=== PATIENT | female | born 1955 | race Two or more races ===

== ENCOUNTER → 2018-04-15 | Outpatient (CLI) | payer OTHER | LOC: M WUC 14:44 | DX: M25.571 Pain in right ankle and joints of right foot (principal); M17.12 Unilateral primary osteoarthritis, left knee; S00.83XA Contusion of other part of head, initial encounter; M77.31 Calcaneal spur, right foot; X58.XXXA Exposure to other specified factors, initial encounter; Y92.9 Unspecified place or not applicable | CPT/HCPCS: 70150 ==

== ENCOUNTER → 2018-12-22 | Outpatient (REF) | payer BC | LOC: M LAB LCGH 11:09 | DX: N90.4 Leukoplakia of vulva (principal) ==

== ENCOUNTER → 2020-09-18 | Outpatient (CLI) | payer BC ==
--- NOTE | 2020-09-19 09:46 | ECHO ---
DATE OF PROCEDURE: 09/18/2020 Age: 65 Gender: Female Height: 154 cm Weight: 76 kg REFERRING PHYSICIAN: DAVID Urias INDICATION: Murmur. MEASUREMENTS: IVS 0.9 cm LV 5.0 cm LVPW 1.0 cm LA 4.1 cm Aorta 2.9 cm RV 3.7 cm IVC 1.7 cm DOPPLER MEASUREMENT Mitral E wave velocity 86 Mitral A wave 103 E prime septal 5.1 E prime lateral 5.9 FINDINGS: This study is of acceptable technical quality. Underlying sinus rhythm. Left ventricle has normal size and systolic function with estimated LVEF around 60%. I do not appreciate any segmental wall motion abnormalities. The right ventricle also appears to be of normal size and systolic function. The left atrium is at least mildly enlarged. The right atrium appears normal. The aortic valve is tricuspid. It is sclerotic, but mobility of cusps is preserved. Mitral, tricuspid, and pulmonic valve appears normal. No pericardial effusion is noted. Inferior vena cava has normal size and appropriately collapses with inspiration. Aortic root and aortic arch appear normal. Abdominal aorta was not well seen. Doppler interrogation of the aortic valve reveals no significant stenosis and mild insufficiency. There is also trace mitral insufficiency. Tricuspid valve is functionally competent. Trace pulmonic insufficiency is noted. Mitral inflow pattern and tissue Doppler imaging of the mitral annulus revealed grade 1 diastolic dysfunction. CONCLUSIONS: 1. Study is of acceptable technical quality, underlying sinus rhythm. 2. Normal LV size with preserved LV systolic function and grade 1 diastolic dysfunction. 3. Aortic sclerosis with no significant stenosis and mild insufficiency. 4. Trace mitral insufficiency. 5. Trace pulmonic insufficiency. 6. Likely normal central venous pressure. Unable to estimate pulmonary artery pressure. MTDD
== END ==
LOC: M CARPUL 10:39
PROVIDERS: ATTEND Physician Assistant
DX: R01.1 Cardiac murmur, unspecified (principal); I08.0 Rheumatic disorders of both mitral and aortic valves

== ENCOUNTER → 2021-07-31 | Outpatient (CLI) | payer BC | LOC: M WHC 07:41 | PROVIDERS: ATTEND Physician Assistant | DX: Z12.31 Encounter for screening mammogram for malignant neoplasm of breast (principal); Z80.0 Family history of malignant neoplasm of digestive organs; Z80.3 Family history of malignant neoplasm of breast; Z78.0 Asymptomatic menopausal state ==

== ENCOUNTER → 2021-12-17 | Outpatient (REF) | payer MEDICARE, BC | LOC: M LAB REF 17:07 | PROVIDERS: ATTEND Physician Assistant Medical | DX: R50.9 Fever, unspecified (principal); R11.10 Vomiting, unspecified ==

== ENCOUNTER → 2022-05-09 | Outpatient (CLI) | payer BC, MEDICARE | LOC: M WHC 09:44 | PROVIDERS: ATTEND Family Medicine | DX: K80.20 Calculus of gallbladder without cholecystitis without obstruction (principal); N20.0 Calculus of kidney; R31.9 Hematuria, unspecified ==

== ENCOUNTER → 2022-09-27 | Outpatient (CLI) | payer MEDICARE ==
[2022-09-27 13:13] LABS: BASO # 0.1 10^3/uL (0.0-0.2); BASO % 0.7 % (0.0-1.0); EOS # 0.2 10^3/uL (0.0-0.5); EOS % 2.2 % (0.0-3.0); HEMATOCRIT 41.3 % (36.0-47.0); HEMOGLOBIN 13.6 g/dl (12.0-15.5); LYMPH # 1.8 10^3/uL (1.5-5.0); LYMPH % 21.9 % (24.0-44.0); MEAN CORPUSCULAR HEMOGLOBIN 31.6 pg (27.0-33.0); MEAN CORPUSCULAR HGB CONC 32.9 g/dl (32.0-36.5); MEAN CORPUSCULAR VOLUME 95.8 fl (80.0-96.0); MONO # 0.7 10^3/uL (0.0-0.8); MONO % 8.2 % (2.0-8.0); NEUTROPHILS # 5.5 10^3/uL (1.5-8.5); NEUTROPHILS % 66.3 % (36.0-66.0); PLATELET COUNT, AUTOMATED 272 10^3/uL (150-450); RED BLOOD COUNT 4.31 10^6/uL (4.00-5.40); WHITE BLOOD COUNT 8.3 10^3/uL (4.0-10.0)
[2022-09-27 13:45] LABS: ALBUMIN 3.4 G/DL (3.2-5.2); ALKALINE PHOSPHATASE 56 U/L (46-116); ALT/SGPT 26 U/L (7.0-40); AST/SGOT 20 U/L (<34); BILIRUBIN,TOTAL 0.6 MG/DL (0.3-1.2); BLOOD UREA NITROGEN 12 MG/DL (9-23); CALCIUM LEVEL 8.9 MG/DL (8.3-10.6); CARBON DIOXIDE LEVEL 34 MMOL/L (20-31); CHLORIDE LEVEL 99 MMOL/L (98-107); CHOLESTEROL LEVEL 133 MG/DL (<200); CHOLESTEROL RISK RATIO 3.19 (<5); CREATININE FOR GFR 0.53 MG/DL (0.55-1.30); GLOMERULAR FILTRATION RATE > 60.0 (>45); GLUCOSE, FASTING 77 MG/DL (74-106); HDL CHOLESTEROL 41.6 MG/DL (>40); LDL CHOLESTEROL 75.8 MG/DL (<100); NON-HDL-C 91 MG/DL; POTASSIUM SERUM 4.1 MMOL/L (3.5-5.1); SODIUM LEVEL 137 MMOL/L (136-145); TOTAL PROTEIN 6.5 G/DL (5.7-8.2); TRIGLYCERIDES LEVEL 78 MG/DL (<150)
[2022-09-27 13:47] LABS: THYROID STIMULATING HORMONE 1.471 uIU/ML (0.55-4.78)
== END ==
LOC: M WUC 09:30
PROVIDERS: ATTEND Physician Assistant
DX: I10 Essential (primary) hypertension (principal); E78.5 Hyperlipidemia, unspecified; E03.9 Hypothyroidism, unspecified

== ENCOUNTER → 2023-09-19 | Outpatient (CLI) | payer MEDICAID, MEDICARE | LOC: M WHC 08:37 | PROVIDERS: ATTEND Obstetrics & Gynecology | DX: Z12.31 Encounter for screening mammogram for malignant neoplasm of breast (principal) ==

== ENCOUNTER → 2023-10-29 | Outpatient (CLI) | payer MEDICARE | LOC: M WHC 07:03 | PROVIDERS: ATTEND Physician Assistant | DX: R10.11 Right upper quadrant pain (principal); K80.20 Calculus of gallbladder without cholecystitis without obstruction; K76.89 Other specified diseases of liver ==

== ENCOUNTER 2023-11-16 06:47 | Inpatient (IN) | payer MEDICARE ==
[2023-11-16] VITALS (9 sets, daily range): BP systolic 101–121; BP diastolic 47–64; TEMP 97.5–98.6; O2SAT 93–98
[~2023-11-16] VITALS: Ht 154.9 cm; Wt 71.8 kg
[2023-11-16] MEDS ORDERED: ATEN50TA2 PO (06:54)
[2023-11-16] MEDS: NS 1,000 ML IV ONE (07:40)
[2023-11-16] MEDS: ONDANSETRON 4MG 2ML VIAL IV ONE (08:14)
[2023-11-16] MEDS: KETOROLAC 30 MG/ML 1ML VIAL IV ONE ×2 (08:14→11:28)
[2023-11-16 08:32] LABS: BASO % 0.2 % (0.0-1.0); EOS % 0.1 % (0.0-3.0); HEMATOCRIT 42.2 % (36.0-47.0); HEMOGLOBIN 14.3 g/dl (12.0-15.5); LYMPH # 0.7 10^3/uL (1.5-5.0); LYMPH % 4.2 % (24.0-44.0); MEAN CORPUSCULAR HEMOGLOBIN 32.4 pg (27.0-33.0); MEAN CORPUSCULAR HGB CONC 33.9 g/dl (32.0-36.5); MEAN CORPUSCULAR VOLUME 95.7 fl (80.0-96.0); MONO # 0.9 10^3/uL (0.0-0.8); MONO % 5.7 % (2.0-8.0); NEUTROPHILS # 13.8 10^3/uL (1.5-8.5); PLATELET COUNT, AUTOMATED 228 10^3/uL (150-450); RED BLOOD COUNT 4.41 10^6/uL (4.00-5.40); WHITE BLOOD COUNT 15.5 10^3/uL (4.0-10.0)
[2023-11-16 09:03] LABS: ALBUMIN 3.8 G/DL (3.2-5.2); BILIRUBIN,DIRECT 0.2 MG/DL (<0.4); BILIRUBIN,TOTAL 0.6 MG/DL (0.3-1.2); TOTAL PROTEIN 6.7 G/DL (5.7-8.2)
[2023-11-16] MEDS ORDERED: ISOVUE-370 76% 100ML VIAL As Ordered ONE (10:35)
[2023-11-16] MEDS: PIPERACILLIN/TAZOBACTAM SOD 3.375 GM in D5W MINI-BAG PLUS 50 ML IV ONE (11:12)
[2023-11-16] MEDS ORDERED: fentaNYL 100 MCG/2 ML INJECTION As Ordered ONE (11:49)
[2023-11-16] MEDS ORDERED: MIDAZOLAM INJ 2MG/2ML VIAL As Ordered ONE (11:49)
[2023-11-16] MEDS ORDERED: propofoL 200 MG/20 ML VIAL As Ordered ONE (11:49)
[2023-11-16] MEDS ORDERED: ROCURONIUM BROMIDE 50MG/5ML VIAL As Ordered ONE (11:50)
[2023-11-16] MEDS ORDERED: LIDOCAINE 2% 100MG/5ML SDV (FOR ANES.) As Ordered ONE (11:50)
[2023-11-16] MEDS ORDERED: MED REC IN PROGRESS XX SCH (11:50)
[2023-11-16] MEDS ORDERED: GLYCOPYRROLATE INJ 0.2 MG/ML 2 ML VIAL As Ordered ONE (11:50)
[2023-11-16] MEDS ORDERED: ONDANSETRON 4MG 2ML VIAL As Ordered ONE (11:51)
[2023-11-16] MEDS ORDERED: METOCLOPRAMIDE INJ 10MG/2ML VIAL As Ordered ONE (11:51)
[2023-11-16] MEDS ORDERED: KETOROLAC 60MG 2ML VIAL As Ordered ONE (11:55)
[2023-11-16] MEDS ORDERED: ACETAMINOPHEN 1000MG 100ML IV BAG As Ordered ONE (11:57)
[2023-11-16] MEDS ORDERED: LEVO50TA5 PO (12:15)
[2023-11-16] MEDS ORDERED: OMEG350C PO (12:15)
[2023-11-16] MEDS ORDERED: CALC-190 PO (12:15)
[2023-11-16] MEDS ORDERED: POTA8CAP10 PO (12:15)
[2023-11-16] MEDS ORDERED: PRAV80TA2 PO (12:15)
[2023-11-16] MEDS ORDERED: B-COTAB10 PO (12:15)
[2023-11-16] MEDS ORDERED: CLOB0.0548 TOP (12:15)
[2023-11-16] MEDS ORDERED: LOTR52CA PO (12:15)
[2023-11-16] MEDS ORDERED: SPIR-10 PO (12:15)
[2023-11-16] MEDS ORDERED: PANT40TA29 PO (12:15)
[2023-11-16] MEDS ORDERED: FLUO20CA22 PO (12:15)
[2023-11-16] MEDS ORDERED: HOME MED LIST COMPLETE! XX SCH (12:20)
[2023-11-16] MEDS ORDERED: oxyCODONE 5MG TAB PO PRN (12:45)
[2023-11-16] MEDS ORDERED: HYDROMORPHONE HCL 0.5 MG/ 0.5 ML SYRINGE IV PRN (12:45)
[2023-11-16] MEDS ORDERED: ONDANSETRON 4MG 2ML VIAL IV PRN (12:45)
[2023-11-16] MEDS ORDERED: fentaNYL 100 MCG/2 ML INJECTION IV PRN (12:45)
[2023-11-16] MEDS ORDERED: MEPERIDINE 25 MG/ML 1ML VIAL IV PRN (12:45)
[2023-11-16] MEDS ORDERED: LABETALOL 100MG/20ML VIAL As Ordered ONE (13:08)
[2023-11-16] MEDS ORDERED: SUGAMMADEX SODIUM 500 MG/5 ML VIAL (BRIDION) As Ordered ONE (13:25)
[2023-11-16] MEDS ORDERED: MORPHINE 2 MG/ML 1ML VIAL IV PRN (13:50)
[2023-11-16] MEDS: PIPERACILLIN/TAZOBACTAM SOD 4.5 GM in D5W MINI-BAG PLUS 50 ML IV SCH (15:34)
[2023-11-16] MEDS: LEVOTHYROXINE 50MCG TABLET (0.05MG) PO SCH (15:34)
[2023-11-16] MEDS: FLUoxetine 20MG CAP PO SCH (17:33)
[2023-11-16] MEDS: PANTOPRAZOLE 40MG TAB (PROTONIX) PO SCH (17:33)
[2023-11-16] MEDS: NORCO, ANEXSIA 5/325MG TABLET (HYDROcodone/ACETAMINOPHEN) PO PRN (19:53)
[2023-11-16] MEDS: PRAVASTATIN 20 MG TAB PO SCH (20:35)
[2023-11-16] MEDS: atenoloL 25 MG TAB PO SCH (20:36)
[2023-11-16] MEDS: LR 1,000 ML IV SCH (21:47)
[2023-11-16 23:18] LABS: BLOOD UREA NITROGEN 16 MG/DL (9-23); CALCIUM LEVEL 8.3 MG/DL (8.3-10.6); CARBON DIOXIDE LEVEL 25 MMOL/L (20-31); CHLORIDE LEVEL 108 MMOL/L (98-107); CREATININE FOR GFR 0.62 MG/DL (0.55-1.30); GLOMERULAR FILTRATION RATE > 60.0 (>45); GLUCOSE, FASTING 148 MG/DL (74-106); MAGNESIUM LEVEL 1.7 MG/DL (1.8-2.4); POTASSIUM SERUM 4.2 MMOL/L (3.5-5.1); SODIUM LEVEL 139 MMOL/L (136-145)
[2023-11-16] MEDS: MAG SULF 1GM/100ML (MAG RUN) 1 GM in IV 1 EA IV SCH (23:52)
[2023-11-17 06:38] VITALS: BP 130/64; TEMP 97; O2SAT 100
[2023-11-17 07:15] LABS: HEMATOCRIT 34.8 % (36.0-47.0); MEAN CORPUSCULAR HEMOGLOBIN 33.2 pg (27.0-33.0); MEAN CORPUSCULAR HGB CONC 34.2 g/dl (32.0-36.5); MEAN CORPUSCULAR VOLUME 97.2 fl (80.0-96.0); PLATELET COUNT, AUTOMATED 198 10^3/uL (150-450); RED BLOOD COUNT 3.58 10^6/uL (4.00-5.40); WHITE BLOOD COUNT 13.1 10^3/uL (4.0-10.0)
[2023-11-17 07:17] LABS: HEMOGLOBIN 11.9 g/dl (12.0-15.5)
[2023-11-17 07:47] LABS: BLOOD UREA NITROGEN 13 MG/DL (9-23); CALCIUM LEVEL 8.2 MG/DL (8.3-10.6); CARBON DIOXIDE LEVEL 27 MMOL/L (20-31); CHLORIDE LEVEL 107 MMOL/L (98-107); CREATININE FOR GFR 0.59 MG/DL (0.55-1.30); GLOMERULAR FILTRATION RATE > 60.0 (>45); GLUCOSE, FASTING 120 MG/DL (74-106); SODIUM LEVEL 139 MMOL/L (136-145)
[2023-11-17 09:59] VITALS: BP 127/62; TEMP 98.4; O2SAT 95
[2023-11-17] MEDS ORDERED: HYDR-3715 PO (13:28)
[2023-11-17 14:00] VITALS: BP 127/62; TEMP 98.2; O2SAT 92
== END 2023-11-17 14:35 | disposition home or self-care (01) | DRG 399 ==
LOC: M ED 06:47 → M ED INP 12:35 → M MS5PR 14:30
PROVIDERS: ADMIT Internal Medicine Nephrology; ATTEND Internal Medicine Nephrology
PROC: 8E0W4CZ Robotic Assisted Procedure of Trunk Region, Percutaneous Endoscopic Approach (ICD-10-PCS; 2023-11-16)
PROC: 0DTJ4ZZ Resection of Appendix, Percutaneous Endoscopic Approach (ICD-10-PCS; principal; 2023-11-16 11:34)
DX: K35.80 Unspecified acute appendicitis (principal); E03.9 Hypothyroidism, unspecified; F32.A Depression, unspecified; I10 Essential (primary) hypertension; E78.5 Hyperlipidemia, unspecified; K57.90 Diverticulosis of intestine, part unspecified, without perforation or abscess without bleeding; K80.20 Calculus of gallbladder without cholecystitis without obstruction; R01.1 Cardiac murmur, unspecified; Z79.899 Other long term (current) drug therapy; Z88.2 Allergy status to sulfonamides; E83.42 Hypomagnesemia

== ENCOUNTER 2024-01-15 14:14 | Day surgery (SDC) | payer MEDICARE ==
[~2024-01-15] VITALS: Ht 152.4 cm; Wt 73.5 kg
[~2024-01-15 14:14] MED LIST: ATEN50TA2 PO; B-COTAB10 PO; CALC-190 PO; CLOB0.0548 TOP; FLUO20CA22 PO; HYDR-3715 PO; LEVO50TA5 PO; LOTR52CA PO; OMEG350C PO; PANT40TA29 PO; POTA8CAP10 PO; PRAV80TA2 PO; SPIR-10 PO
[2024-01-15] MEDS ORDERED: MIDAZOLAM INJ 2MG/2ML VIAL As Ordered ONE (14:36)
[2024-01-15] MEDS ORDERED: ONDANSETRON 4MG 2ML VIAL As Ordered ONE (14:36)
[2024-01-15] MEDS ORDERED: fentaNYL 100 MCG/2 ML INJECTION As Ordered ONE (14:36)
[2024-01-15] MEDS ORDERED: LIDOCAINE 2% 100MG/5ML SDV (FOR ANES.) As Ordered ONE (14:36)
[2024-01-15] MEDS ORDERED: propofoL 200 MG/20 ML VIAL As Ordered ONE (14:36)
[2024-01-15] MEDS ORDERED: ROCURONIUM BROMIDE 50MG/5ML VIAL As Ordered ONE (14:36)
[2024-01-15] MEDS ORDERED: KETOROLAC 60MG 2ML VIAL As Ordered ONE (14:37)
[2024-01-15] MEDS ORDERED: SUGAMMADEX SODIUM 500 MG/5 ML VIAL (BRIDION) As Ordered ONE (14:37)
[2024-01-15] MEDS ORDERED: LR 1,000 ML IV SCH ×2 (14:45→16:40)
[2024-01-15] MEDS ORDERED: INDOCYANINE GREEN 25MG VIAL (IC-GREEN) As Ordered ONE (15:24)
[2024-01-15] MEDS: INDOCYANINE GREEN 25MG VIAL (IC-GREEN) IV ONE (15:30)
[2024-01-15] MEDS: ceFAZolin SOD 2 GM in IV 1 EA IV ONE (15:32)
[2024-01-15] MEDS: HEPARIN SOD (PORCINE) 5000UNITS/ML 1ML VIAL/SYRINGE SQ ONE (15:44)
[2024-01-15] MEDS ORDERED: ACETAMINOPHEN 1000MG 100ML IV BAG As Ordered ONE (15:49)
[2024-01-15] MEDS ORDERED: dexmedeTOMIDine (4MCG/ML)200MCG/50ML BTL (PRECEDEX) As Ordered ONE (16:10)
[2024-01-15] MEDS: fentaNYL 100 MCG/2 ML INJECTION IV PRN (16:53)
[2024-01-15] MEDS: HYDROMORPHONE HCL 0.5 MG/ 0.5 ML SYRINGE IV PRN (17:16)
[2024-01-15] MEDS: oxyCODONE 5MG TAB PO PRN (17:16)
[2024-01-15] MEDS: ONDANSETRON 4MG 2ML VIAL IV PRN (18:01)
[2024-01-15] MEDS: METOCLOPRAMIDE INJ 10MG/2ML VIAL IV PRN (18:50)
[2024-01-15 20:05] VITALS: BP 164/74; TEMP 97.2; O2SAT 95
== END 2024-01-15 20:07 | disposition home or self-care (01) ==
LOC: M SDC 14:14
PROVIDERS: ATTEND Surgery
DX: K80.20 Calculus of gallbladder without cholecystitis without obstruction (principal); I10 Essential (primary) hypertension; E03.9 Hypothyroidism, unspecified; K57.92 Diverticulitis of intestine, part unspecified, without perforation or abscess without bleeding; K21.9 Gastro-esophageal reflux disease without esophagitis; F41.9 Anxiety disorder, unspecified; Z79.899 Other long term (current) drug therapy; Z88.2 Allergy status to sulfonamides
CPT/HCPCS: 47562; 88304; J0131; J0665; J0690; J1100; J1170; J1885; J2250; J2405; J2765; J3010; Q9968; S2900

== ENCOUNTER → 2024-06-26 | Outpatient (CLI) | payer MEDICARE ==
[~2024-06-26] MED LIST changes: +FLUO-365 PO; -FLUO20CA22 PO
[2024-06-26 10:46] LABS: HEMATOCRIT 39.5 % (36.0-47.0); HEMOGLOBIN 13.1 g/dl (12.0-15.5); MEAN CORPUSCULAR HEMOGLOBIN 32.6 pg (27.0-33.0); MEAN CORPUSCULAR HGB CONC 33.2 g/dl (32.0-36.5); MEAN CORPUSCULAR VOLUME 98.3 fl (80.0-96.0); PLATELET COUNT, AUTOMATED 239 10^3/uL (150-450); RED BLOOD COUNT 4.02 10^6/uL (4.00-5.40)
[2024-06-26 11:16] LABS: ALBUMIN 3.4 G/DL (3.2-5.2); ALKALINE PHOSPHATASE 76 U/L (35-104); ALT/SGPT 17 U/L (7.0-40); AST/SGOT 11 U/L (<34); BILIRUBIN,TOTAL 0.4 MG/DL (0.3-1.2); BLOOD UREA NITROGEN 18 MG/DL (9-23); CALCIUM LEVEL 9.5 MG/DL (8.3-10.6); CARBON DIOXIDE LEVEL 28 MMOL/L (20-31); CHLORIDE LEVEL 110 MMOL/L (98-107); CHOLESTEROL LEVEL 159 MG/DL (<200); CHOLESTEROL RISK RATIO 4.69 (<5); CREATININE FOR GFR 0.74 MG/DL (0.55-1.30); GLOMERULAR FILTRATION RATE > 60.0 (>45); GLUCOSE, FASTING 82 MG/DL (74-106); HDL CHOLESTEROL 33.9 MG/DL (>40); LDL CHOLESTEROL 100.1 MG/DL (<100); NON-HDL-C 125.1 MG/DL; POTASSIUM SERUM 4.4 MMOL/L (3.5-5.1); SODIUM LEVEL 142 MMOL/L (136-145); THYROID STIMULATING HORMONE 1.965 uIU/ML (0.55-4.78); TOTAL PROTEIN 6.5 G/DL (5.7-8.2); TRIGLYCERIDES LEVEL 125 MG/DL (<150)
[2024-06-28 06:55] LABS: WHITE BLOOD COUNT 5.8 10^3/uL (4.0-10.0)
== END ==
LOC: M LAB 08:46
PROVIDERS: ATTEND Physician Assistant
DX: I10 Essential (primary) hypertension (principal); E78.5 Hyperlipidemia, unspecified; E03.9 Hypothyroidism, unspecified

== ENCOUNTER → 2024-08-10 | Outpatient (REF) | payer MEDICARE ==
[2024-08-10 19:13] LABS: APPEARANCE, URINE CLEAR (CLEAR); BACTERIA, URINE AUTO NEGATIVE (NEGATIVE); BILIRUBIN, URINE AUTO NEGATIVE (NEGATIVE); BLOOD, URINE BLOOD 1+ (NEGATIVE); COLOR, URINE YELLOW (YELLOW); GLUCOSE, URINE (UA) AUTO NEGATIVE (NEGATIVE); KETONE, URINE AUTO NEGATIVE (NEGATIVE); LEUKOCYTE ESTERASE, URINE AUTO 3+ (NEGATIVE); NITRITE, URINE AUTO NEGATIVE (NEGATIVE); PROTEIN, URINE AUTO NEGATIVE (NEGATIVE); RBC, URINE AUTO 1 /HPF (0-3); SPECIFIC GRAVITY URINE AUTO 1.012 (1.002-1.035); SQUAMOUS EPITHELIAL CELL UR AU 2 /HPF (0-6); UROBILINOGEN, URINE AUTO 0.2 mg/dL (0.0-2.0); WBC, URINE AUTO 61 /HPF (0-3)
== END ==
LOC: M SMT 17:17
PROVIDERS: ATTEND Nurse Practitioner Family
DX: R32 Unspecified urinary incontinence (principal)

== ENCOUNTER → 2024-09-18 | Outpatient (CLI) | payer MEDICARE ==
[2024-09-18 09:36] LABS: HEMATOCRIT 39.2 % (36.0-47.0); HEMOGLOBIN 12.9 g/dl (12.0-15.5); MEAN CORPUSCULAR HEMOGLOBIN 32.2 pg (27.0-33.0); MEAN CORPUSCULAR HGB CONC 32.9 g/dl (32.0-36.5); MEAN CORPUSCULAR VOLUME 97.8 fl (80.0-96.0); PLATELET COUNT, AUTOMATED 228 10^3/uL (150-450); RED BLOOD COUNT 4.01 10^6/uL (4.00-5.40); WHITE BLOOD COUNT 6.1 10^3/uL (4.0-10.0)
[2024-09-18 09:58] LABS: BLOOD UREA NITROGEN 19 MG/DL (9-23); CALCIUM LEVEL 9.6 MG/DL (8.3-10.6); CARBON DIOXIDE LEVEL 28 MMOL/L (20-31); CHLORIDE LEVEL 108 MMOL/L (98-107); GLOMERULAR FILTRATION RATE > 60.0 (>45); GLUCOSE, FASTING 88 MG/DL (74-106); POTASSIUM SERUM 4.6 MMOL/L (3.5-5.1); SODIUM LEVEL 143 MMOL/L (136-145)
== END ==
LOC: M RAD 08:11
PROVIDERS: ATTEND Urology
DX: Z01.818 Encounter for other preprocedural examination (principal); N39.3 Stress incontinence (female) (male); I44.0 Atrioventricular block, first degree; R00.1 Bradycardia, unspecified; R94.31 Abnormal electrocardiogram [ECG] [EKG]

== ENCOUNTER → 2024-09-27 | Outpatient (REF) | payer MEDICARE | LOC: M SMT 15:29 | PROVIDERS: ATTEND Urology | DX: Z01.818 Encounter for other preprocedural examination (principal); N39.3 Stress incontinence (female) (male); N39.0 Urinary tract infection, site not specified ==

== ENCOUNTER → 2024-09-28 | Outpatient (REF) | payer MEDICARE ==
[~2024-09-28] MED LIST changes: +FAMO40TA3 PO
[2024-09-28 17:23] LABS: APPEARANCE, URINE MANUAL CLEAR (CLEAR); COLOR, URINE MANUAL YELLOW (YELLOW)
[2024-09-28 17:28] LABS: BILIRUBIN, URINE MANUAL NEGATIVE (NEGATIVE); BLOOD URINE MANUAL NEGATIVE (NEGATIVE); GLUCOSE, URINE (UA) MANUAL NEGATIVE (NEGATIVE); KETONE, URINE MANUAL NEGATIVE (NEGATIVE); LEUKOCYTE ESTERASE, URINE MAN NEGATIVE (NEGATIVE); NITRITE, URINE MANUAL NEGATIVE (NEGATIVE); PH,URINE MAN 1.025 UNITS (5.0 - 7.0); PROTEIN, URINE MANUAL TRACE mg/dL (NEGATIVE); UROBILINOGEN, URINE MANUAL NORMAL (NORMAL)
[2024-09-28 17:29] LABS: BACTERIA, URINE NONE SEEN; HYALINE CAST, URINE NONE SEEN /lpf (0-1); RBC, URINE NONE SEEN /hpf (0-3); SQUAMOUS EPITHELIAL CELL URINE NONE SEEN /hpf (SMALL AMT); WBC, URINE NONE SEEN /hpf (0-3)
== END ==
LOC: M SMT 17:00
PROVIDERS: ATTEND Urology
DX: N39.0 Urinary tract infection, site not specified (principal)

== ENCOUNTER 2024-10-06 09:47 | Day surgery (SDC) | payer MEDICARE ==
[~2024-10-06] VITALS: Ht 154.9 cm; Wt 74.8 kg
[2024-10-06] MEDS ORDERED: ACETAMINOPHEN 1000MG/100ML IV BAG As Ordered ONE (09:52)
[2024-10-06] MEDS ORDERED: ONDANSETRON 4MG 2ML VIAL As Ordered ONE (09:52)
[2024-10-06] MEDS ORDERED: LIDOCAINE 2% 100MG/5ML SDV (FOR ANES.) As Ordered ONE (09:52)
[2024-10-06] MEDS ORDERED: propofoL 200 MG/20 ML VIAL As Ordered ONE (09:52)
[2024-10-06] MEDS ORDERED: MIDAZOLAM INJ 2MG/2ML VIAL As Ordered ONE (09:53)
[2024-10-06] MEDS ORDERED: NS (Normal Saline) 0.9% 1,000 ML IV SCH (11:00)
[2024-10-06] MEDS: ceFAZolin SOD 2 GM in IV 1 EA IV ONE (11:50)
[2024-10-06] MEDS: LIDOCAINE 2% 5ML JELLY UROJET As Ordered ONE (12:00)
[2024-10-06] MEDS ORDERED: CEPH500C PO (12:34)
[2024-10-06 13:05] VITALS: BP 163/78; TEMP 97.4; O2SAT 99
== END 2024-10-06 13:08 | disposition home or self-care (01) ==
LOC: M SDC 09:47
PROVIDERS: ATTEND Urology
DX: N39.3 Stress incontinence (female) (male) (principal); I10 Essential (primary) hypertension; E03.9 Hypothyroidism, unspecified; K57.92 Diverticulitis of intestine, part unspecified, without perforation or abscess without bleeding; K21.9 Gastro-esophageal reflux disease without esophagitis; F03.90 Unspecified dementia, unspecified severity, without behavioral disturbance, psychotic disturbance, mood disturbance, and anxiety; F41.9 Anxiety disorder, unspecified; Z88.2 Allergy status to sulfonamides; Z79.899 Other long term (current) drug therapy; Z87.891 Personal history of nicotine dependence
CPT/HCPCS: 51715; J0131; J0690; J2250; J2405; L8606

== ENCOUNTER → 2025-04-21 | Outpatient (CLI) | payer MEDICARE ==
[~2025-04-21] MED LIST changes: +CEPH500C PO; -PRAV80TA2 PO; +PRAV80TA75 PO
[2025-04-21 09:49] LABS: PLATELET COUNT, AUTOMATED 243 10^3/uL (150-450)
[2025-04-21 10:29] LABS: ALT/SGPT 24.0 U/L (7.0-40); AST/SGOT 23.0 U/L (<34); CALCIUM LEVEL 9.4 MG/DL (8.3-10.6); CARBON DIOXIDE LEVEL 30.0 MMOL/L (20-31); CHLORIDE LEVEL 101.0 MMOL/L (98-107); CHOLESTEROL LEVEL 162.0 MG/DL (<200); CHOLESTEROL RISK RATIO 4.4 (<5); CREATININE FOR GFR 0.75 MG/DL (0.55-1.30); GLOMERULAR FILTRATION RATE 86.7 (>45); LDL CHOLESTEROL 94.8 MG/DL (<100); NON-HDL-C 125.2 MG/DL; POTASSIUM SERUM 4.6 MMOL/L (3.5-5.1); SODIUM LEVEL 141.0 MMOL/L (136-145); TRIGLYCERIDES LEVEL 152.0 MG/DL (<150)
== END ==
LOC: M LAB 09:01
PROVIDERS: ATTEND Physician Assistant
DX: E03.9 Hypothyroidism, unspecified (principal); E78.5 Hyperlipidemia, unspecified; I10 Essential (primary) hypertension

== ENCOUNTER → 2025-04-29 | Outpatient (CLI) | payer MEDICARE | LOC: M WHC 07:01 | PROVIDERS: ATTEND Physician Assistant | DX: Z12.31 Encounter for screening mammogram for malignant neoplasm of breast (principal); R92.323 Mammographic fibroglandular density, bilateral breasts ==

== ENCOUNTER → 2025-06-27 | Outpatient (REF) | payer MEDICARE ==
[2025-06-29 15:47] LABS: HPV APTIMA Not Detected (Not Detected)
== END ==
LOC: M SFHCWAGY 13:12
PROVIDERS: ATTEND Obstetrics & Gynecology
DX: Z12.72 Encounter for screening for malignant neoplasm of vagina (principal)
CPT/HCPCS: 87624; G0123

== ENCOUNTER 2025-08-20 15:53 | Inpatient (IN) | payer MEDICARE ==
[~2025-08-20] VITALS: Ht 154.9 cm; Wt 75.1 kg
[2025-08-20 16:26] LABS: BASO # 0.1 10^3/uL (0.0-0.2); BASO % 0.6 % (0.0-1.0); EOS # 0.2 10^3/uL (0.0-0.5); EOS % 2.2 % (0.0-3.0); LYMPH # 1.5 10^3/uL (1.5-5.0); LYMPH % 16.4 % (24.0-44.0); MONO # 1.1 10^3/uL (0.0-0.8); MONO % 11.6 % (2.0-8.0); NEUTROPHILS # 6.4 10^3/uL (1.5-8.5); NEUTROPHILS % 68.3 % (36.0-66.0); PLATELET COUNT, AUTOMATED 209 10^3/uL (150-450)
[2025-08-20] MEDS: ONDANSETRON 4MG/2ML VIAL IV ONE (16:26)
[2025-08-20] MEDS: MORPHINE 4 MG/ML 1 ML VIAL IV ONE (16:26)
[2025-08-20] MEDS: ACETAMINOPHEN *IV* 1,000 MG in IV 1 EA IV ONE (16:27)
[2025-08-20] MEDS: NS (Normal Saline) 0.9% 1,000 ML IV ONE (16:32)
[2025-08-20 16:51] LABS: CK-MB VALUE MASS < 1.0 NG/ML (<3.6)
[2025-08-20 16:55] LABS: ALT/SGPT 27 U/L (7.0-40); AST/SGOT 19 U/L (<34); CALCIUM LEVEL 8.4 MG/DL (8.3-10.6); CARBON DIOXIDE LEVEL 23 MMOL/L (20-31); CHLORIDE LEVEL 103 MMOL/L (98-107); CPK CREATINE PHOSPHOKINASE 20 U/L (34-145); CREATININE FOR GFR 0.72 MG/DL (0.55-1.30); GLOMERULAR FILTRATION RATE > 90.0 (>45); POTASSIUM SERUM 3.6 MMOL/L (3.5-5.1); SODIUM LEVEL 136 MMOL/L (136-145)
[2025-08-20 16:56] LABS: FREE T4 1.38 NG/DL (0.89-1.76)
[2025-08-20 18:00] LABS: CK-MB VALUE MASS < 1.0 NG/ML (<3.6)
[2025-08-20 18:12] LABS: CPK CREATINE PHOSPHOKINASE 24 U/L (34-145)
[2025-08-20] MEDS: NS 500 ML IV ONE (18:12)
[2025-08-20] MEDS: MORPHINE 2 MG/ML 1 ML VIAL IV ONE (18:20)
[2025-08-20] MEDS: KETOROLAC 30 MG/ML 1 ML VIAL IV ONE (20:12)
[2025-08-20] MEDS ORDERED: ACETAMINOPHEN 325 MG TAB PO PRN (20:50)
[2025-08-20 22:32] VITALS: BP 121/58; TEMP 98.2; O2SAT 93
[2025-08-20] MEDS: ONDANSETRON 4MG/2ML VIAL IV SCH (23:27)
[2025-08-20] MEDS: NS (Normal Saline) 0.9% 1,000 ML IV SCH (23:32)
[2025-08-20] MEDS: PIPERACILLIN/TAZOBACTAM SOD 4.5 GM in DEXTROSE 5% (D5W) ADV/MINI-BAG 50 ML IV ONE (23:33)
[2025-08-21 04:19] VITALS: BP 114/64; TEMP 97.7; O2SAT 97
[2025-08-21] MEDS: PIPERACILLIN/TAZOBACTAM SOD 3.375 GM in DEXTROSE 5% (D5W) ADV/MINI-BAG 50 ML IV SCH (04:27)
[2025-08-21 05:47] LABS: PLATELET COUNT, AUTOMATED 166 10^3/uL (150-450)
[2025-08-21 06:09] LABS: CALCIUM LEVEL 7.6 MG/DL (8.3-10.6); CARBON DIOXIDE LEVEL 23 MMOL/L (20-31); CHLORIDE LEVEL 107 MMOL/L (98-107); CREATININE FOR GFR 0.64 MG/DL (0.55-1.30); GLOMERULAR FILTRATION RATE > 90.0 (>45); POTASSIUM SERUM 3.6 MMOL/L (3.5-5.1); SODIUM LEVEL 138 MMOL/L (136-145)
[2025-08-21] MEDS ORDERED: OYST1TAB PO (06:15)
[2025-08-21] MEDS ORDERED: CLOB5CR VG (06:18)
[2025-08-21] MEDS ORDERED: HOME MED LIST COMPLETE! XX SCH (06:20)
[2025-08-21] MEDS: ENOXAPARIN 40 MG/0.4 ML SYRINGE (J1650 PER 10MG) SC SCH (07:47)
[2025-08-21 12:00] VITALS: BP 118/59; TEMP 98.4; O2SAT 99
[2025-08-21] MEDS: FLUoxetine 20 MG CAP PO SCH (17:24)
[2025-08-21] MEDS: POTASSIUM CHLORIDE 10MEQ SR TABLET PO ONE (17:24)
[2025-08-21] MEDS: FAMOTIDINE 20 MG TAB PO SCH (17:24)
[2025-08-21 21:48] VITALS: BP 122/67; TEMP 98; O2SAT 96
[2025-08-21] MEDS: PRAVASTATIN 20 MG TAB PO SCH (21:56)
[2025-08-22 04:08] VITALS: BP 115/63; TEMP 98.6; O2SAT 95
[2025-08-22] MEDS: LEVOTHYROXINE 50 MCG TABLET (0.05 MG) PO SCH (06:03)
[2025-08-22 06:22] LABS: PLATELET COUNT, AUTOMATED 186 10^3/uL (150-450)
[2025-08-22 06:43] LABS: CALCIUM LEVEL 7.7 MG/DL (8.3-10.6); CARBON DIOXIDE LEVEL 24.0 MMOL/L (20-31); CHLORIDE LEVEL 105.0 MMOL/L (98-107); CREATININE FOR GFR 0.75 MG/DL (0.55-1.30); GLOMERULAR FILTRATION RATE 86.1 (>45); POTASSIUM SERUM 4.2 MMOL/L (3.5-5.1); SODIUM LEVEL 137.0 MMOL/L (136-145)
[2025-08-22] MEDS ORDERED: FLUZONE HIGH DOSE (65+) 0.5 ML SYRINGE (25-26) IM.IMMUN ONE (09:00)
[2025-08-22 10:06] VITALS: BP 136/77
[2025-08-22] MEDS: SPIRONOLACTONE 25 MG TAB PO SCH (10:06)
[2025-08-22] MEDS: PNEUMOC 21-VAL CONJ-DIP CRM/PF 0.5 ML SYRINGE IM.IMMUN ONE (11:08)
== END 2025-08-22 11:24 | disposition home or self-care (01) | DRG 395 ==
LOC: EDBD 15:53 → M ED 15:53 → M ED INP 20:49 → M MSPAV 22:30
PROVIDERS: ADMIT Student in an Organized Health Care Education/Training Program; ATTEND Student in an Organized Health Care Education/Training Program
DX: I88.0 Nonspecific mesenteric lymphadenitis (principal); E03.9 Hypothyroidism, unspecified; I10 Essential (primary) hypertension; I95.9 Hypotension, unspecified; E78.5 Hyperlipidemia, unspecified; Z79.899 Other long term (current) drug therapy; Z79.890 Hormone replacement therapy; Z88.2 Allergy status to sulfonamides; B97.4 Respiratory syncytial virus as the cause of diseases classified elsewhere